=== PATIENT | female | born 1935 | race Asian ===

== ENCOUNTER 2018-09-06 17:38 | Emergency (ER) | payer MEDICARE ==
[~2018-09-06] VITALS: Ht 152.4 cm; Wt 54.5 kg
[~2018-09-06 17:38] MED LIST: ASPI81TA87 PO; OLME20TA10 PO
[2018-09-06] MEDS ORDERED: NEBI5 PO (17:41)
[2018-09-06 19:06] VITALS: BP 161/78
[2018-09-06 19:17] LABS: BASOPHILS % (AUTO) 0.7 % (0.0-2.0); HEMATOCRIT 38.1 % (36-46); HEMOGLOBIN 12.6 g/dL (12.0-16.0); LYMPHOCYTES # (AUTO) 1.6 K/uL (1.0-4.8); LYMPHOCYTES % (AUTO) 27.1 % (22.0-44.0); MEAN CORPUSCULAR HEMOGLOBIN 30.2 pg (26.0-34.0); MEAN CORPUSCULAR HGB CONC 33.2 G/dL (31.0-37.0); MEAN CORPUSCULAR VOLUME 91 fL (80-100); MONOCYTES # (AUTO) 0.5 K/uL (0.1-1.0); MONOCYTES % (AUTO) 8.3 % (2.0-9.0); NEUTROPHILS # (AUTO) 3.6 K/uL (1.8-7.7); NEUTROPHILS % (AUTO) 62.9 % (40.0-70.0); PLATELET COUNT (AUTO) 192 K/uL (150-450); RED BLOOD CELL COUNT(AUTO) 4.18 MIL/uL (4.00-5.20); RED CELL DISTRIBUTION WIDTH 13.1 % (11.5-14.5)
[2018-09-06 19:30] LABS: PROTHROMBIN TIME 10.3 SEC (9.4-11.6)
[2018-09-06 20:16] LABS: APPEARANCE,URINE CLEAR (CLEAR); BILIRUBIN,URINE NEGATIVE (NEGATIVE); GLUCOSE, URINE (UA) NEGATIVE (NEGATIVE); KETONES,URINE NEGATIVE (NEGATIVE); LEUKOCYTE ESTERASE ,URINE NEGATIVE (NEGATIVE); NITRATE,URINE NEGATIVE (NEGATIVE); OCCULT BLOOD,URINE SMALL (NEGATIVE); PROTEIN,URINE NEGATIVE (NEGATIVE); UROBILINOGEN,URINE 0.2 mg/dL (<=1.0)
[2018-09-06 20:30] LABS: ANION GAP 10 mmol/L (8-16); CALCIUM, TOTAL 8.7 mg/dL (8.8-10.5); CARBON DIOXIDE 27 mmol/L (22-29); CHLORIDE 103 mmol/L (98-107); CREATININE 0.57 mg/dL (0.60-1.30); GLUCOSE,RANDOM 91 mg/dL (70-110); POTASSIUM 3.6 mmol/L (3.5-5.1); UREA NITROGEN, BLOOD 8 mg/dL (7-18)
[2018-09-06 20:31] LABS: GLOMERULAR FILTR. RATE CALC > 60 mL/min (>60); SODIUM SERUM 140 mmol/L (136-145)
[2018-09-06 20:33] LABS: ALKALINE PHOSPHATASE 75 U/L (46-116); ASPARTATE AMINOTRANSFERASE 24 U/L (15-37); BILIRUBIN,TOTAL 0.3 mg/dL (0.1-1.0)
[2018-09-06 20:34] LABS: ALANINE AMINOTRANSFERASE 24 U/L (12-78); ALBUMIN 3.2 g/dL (3.4-5.0); CREATINE KINASE, TOTAL ONLY 60 U/L (26-192); TOTAL PROTEIN, SERUM 6.8 g/dL (6.4-8.2)
[2018-09-06 20:35] LABS: BACTERIA,URINE None Seen /HPF (None Seen); RBC,URINE 0-2 /HPF (0-2); SQUAMOUS EPITHELIAL CELL,UR Rare /LPF (None Seen); WBC,URINE None Seen /HPF (0-5)
[2018-09-06 20:36] LABS: B-TYPE NATRIURETIC PEPTIDE 103 pg/mL (0-100)
== END 2018-09-06 21:45 | disposition home or self-care (01) ==
LOC: EMS 17:38
DX: I10 Essential (primary) hypertension (principal); Z90.710 Acquired absence of both cervix and uterus; Z88.1 Allergy status to other antibiotic agents; Z79.899 Other long term (current) drug therapy
CPT/HCPCS: 83735; 93005

== ENCOUNTER 2019-05-02 19:55 | Emergency (ER) | payer MEDICARE ==
[~2019-05-02] VITALS: Ht 152.4 cm; Wt 50.9 kg
[~2019-05-02 19:55] MED LIST changes: -ASPI81TA87 PO; +NEBI5 PO; -OLME20TA10 PO
[2019-05-02] MEDS ORDERED: OFLO5DRO3 OU (20:07)
[2019-05-02 21:15] LABS: BASOPHILS % (AUTO) 0.8 % (0.0-2.0); EOSINOPHILS % (AUTO) 1.8 % (1.0-6.0); HEMATOCRIT 39.3 % (36-46); HEMOGLOBIN 12.8 g/dL (12.0-16.0); LYMPHOCYTES # (AUTO) 1.5 K/uL (1.0-4.8); LYMPHOCYTES % (AUTO) 24.1 % (22.0-44.0); MEAN CORPUSCULAR HEMOGLOBIN 29.9 pg (26.0-34.0); MEAN CORPUSCULAR HGB CONC 32.6 G/dL (31.0-37.0); MEAN CORPUSCULAR VOLUME 92 fL (80-100); MONOCYTES # (AUTO) 0.6 K/uL (0.1-1.0); MONOCYTES % (AUTO) 9.2 % (2.0-9.0); NEUTROPHILS # (AUTO) 3.9 K/uL (1.8-7.7); NEUTROPHILS % (AUTO) 64.1 % (40.0-70.0); PLATELET COUNT (AUTO) 168 K/uL (150-450); RED BLOOD CELL COUNT(AUTO) 4.28 MIL/uL (4.00-5.20); RED CELL DISTRIBUTION WIDTH 13.6 % (11.5-14.5)
[2019-05-02 21:18] LABS: APPEARANCE,URINE CLEAR (CLEAR); BILIRUBIN,URINE NEGATIVE (NEGATIVE); GLUCOSE, URINE (UA) NEGATIVE (NEGATIVE); KETONES,URINE NEGATIVE (NEGATIVE); LEUKOCYTE ESTERASE ,URINE NEGATIVE (NEGATIVE); NITRATE,URINE NEGATIVE (NEGATIVE); OCCULT BLOOD,URINE SMALL (NEGATIVE); PH,URINE 5.5 (5.0-8.0); PROTEIN,URINE NEGATIVE (NEGATIVE); UROBILINOGEN,URINE 0.2 mg/dL (<=1.0)
[2019-05-02 21:30] LABS: BACTERIA,URINE Rare /HPF (None Seen); RBC,URINE 0-2 /HPF (0-2); WBC,URINE 0-2 /HPF (0-5)
[2019-05-02 21:31] LABS: SQUAMOUS EPITHELIAL CELL,UR Rare /LPF (None Seen); YEAST,URINE Rare /HPF (None Seen)
[2019-05-02 21:38] LABS: ANION GAP 13 mmol/L (8-16); CALCIUM, TOTAL 8.9 mg/dL (8.8-10.5); CARBON DIOXIDE 26 mmol/L (22-29); CHLORIDE 103 mmol/L (98-107); GLUCOSE,RANDOM 106 mg/dL (70-110); POTASSIUM 3.5 mmol/L (3.5-5.1); SODIUM SERUM 142 mmol/L (136-145); UREA NITROGEN, BLOOD 13 mg/dL (7-18)
[2019-05-02 21:43] LABS: GLOMERULAR FILTR. RATE CALC > 60 mL/min (>60)
[2019-05-02 21:44] LABS: ALANINE AMINOTRANSFERASE 17 U/L (12-78); ALBUMIN 3.5 g/dL (3.4-5.0); ALKALINE PHOSPHATASE 75 U/L (46-116); ASPARTATE AMINOTRANSFERASE 22 U/L (15-37); BILIRUBIN,TOTAL 0.3 mg/dL (0.1-1.0); CREATINE KINASE, TOTAL ONLY 52 U/L (26-192); TOTAL PROTEIN, SERUM 7.2 g/dL (6.4-8.2)
[2019-05-02 21:59] LABS: B-TYPE NATRIURETIC PEPTIDE 153 pg/mL (0-100)
[2019-05-02 22:45] VITALS: BP 164/70
== END 2019-05-02 23:15 | disposition home or self-care (01) ==
LOC: EMS 19:56
DX: I10 Essential (primary) hypertension (principal); Z90.710 Acquired absence of both cervix and uterus; Z88.1 Allergy status to other antibiotic agents
CPT/HCPCS: 93005